=== PATIENT | female | born 1945 | race Caucasian/White ===

== ENCOUNTER → 2021-03-25 | Outpatient (CLI) | payer MEDICARE, BC ==
--- NOTE | 2021-03-25 14:11 | MM ---
Reason for exam: screening (asymptomatic). Last mammogram was performed 8 years and 10 months ago. History: Patient is postmenopausal, has history of endometrial cancer at age 60, and has history of ovarian cancer at age 60. Family history of breast cancer in paternal grandmother. Excisional biopsy of the right breast. Physical Findings: A clinical breast exam by your physician is recommended on an annual basis and results should be correlated with mammographic findings. MG 3D Screening Mammo W/Cad Bilateral CC and MLO view(s) were taken. Prior study comparison: May 15, 2012, bilateral digital screening mammo w/CAD. January 11, 2008, bilateral digital screening mammogram. The breast tissue is heterogeneously dense. This may lower the sensitivity of mammography. Finding #1: There is a 6 mm obscured oval mass in the upper outer quadrant of the right breast. Finding #2: There are typically benign round calcifications in both breasts. There is a chronic nodularity in the right breast. There is no discrete abnormality. ASSESSMENT: Benign, BI-RAD 2 RECOMMENDATION: Routine screening mammogram of both breasts in 1 year.
== END | disposition home or self-care (01) ==
LOC: RADMAMWWP 08:44
PROVIDERS: ATTEND Family Medicine
DX: Z12.31 Encounter for screening mammogram for malignant neoplasm of breast (principal)
CPT/HCPCS: 77063; 77067

== ENCOUNTER 2022-12-23 09:30 | Day surgery (SDC) | payer MEDICARE ==
--- NOTE | 2022-12-19 15:22 | P.HPIHPCON ---
History of Present Illness H&P Date: 12/19/22 Chief Complaint: Stress Urinary Incontinence Ms. Dorman is a 77 year old who presents for surgical management of stress urinary incontinence with TVT Midurethral Sling. The patient has had urinary incontinence without urgency for the past few years that has become inc reasingly worse. The leakage occurs withe bending, coughing, exercise, laughing, running, and sneezing. She describes leakage of moderate amount of urine. She has to use pads for protection and often has to change her clothes. She has leaks 5-6 times a week. She also has recurrent UTIs. Consent for Procedure: I have explained the operation/procedure to the patient, including the risks, benefits, side effects, alternative therapies (including not receiving the proposed treatment or service), the likelihood of the patient achieving his/her goals, and potential recuperation problems for the procedure/sedation/analgesia, as well as any blood products, if indicated. I also explained to the patient the risks, benefits and side effects of the alternatives, as well as the risks related to not receiving the proposed procedure, care, treatment, or services. Past Medical History Past Medical History: Cancer, Osteoarthritis (OA) Additional Past Medical History / Comment(s): SINUS PROBLEMS, OVARIAN/UTERINE CANCER 12 YEARS AGO HAD SX AND CHEMO, UTI,SHINGLES 10 YEARS AGO.STATED"HAS A SEWING NEEDLE LODGED IN HER LT KNEE" History of Any Multi-Drug Resistant Organisms: None Reported Past Surgical History: Appendectomy, Hysterectomy, Orthopedic Surgery Additional Past Surgical History / Comment(s): rectocele/CYSTOCELE, X2 LT KNEE ARTHROSCOPIES, RT BREAST FEW NODES REMOVED BUT WERE BENIGN. Past Anesthesia/Blood Transfusion Reactions: No Reported Reaction Past Psychological History: No Psychological Hx Reported Past Alcohol Use History: None Reported Past Drug Use History: None Reported - Past Family History Mother Additional Family Medical History / Comment(s): DIVERTICULITIS, HYSTERECTOMY Father Family Medical History: Cancer, Dementia, Prostate Disorder Medications and Allergies Home Medications Medication Instructions Recorded Confirmed Type Ascorbic Acid [Vitamin C] 500 mg PO DAILY@1200 03/26/15 07/01/15 History Multivit with Calcium,Iron,Min 1 tab PO DAILY 03/26/15 07/01/15 History [Women's Daily Multivitamin] Sulfamethox-Tmp 400-80Mg [Bactrim 1 tab PO Q12HR #6 tablet 07/02/15 Rx SS 400-80 mg] Allergies Allergy/AdvReac Type Severity Reaction Status Date / Time acetaminophen AdvReac severely Verified 07/01/15 14:54 affects liver function Surgical - Exam Focused physical exam is performed. External genitalia are normal in appearance for age. Very small grade 1 anterior and posterior prolapse. Postvoid residual is 0 cc. Cervix and uterus surgically absent. Assessment and Plan Assessment: 77 year old with stress urinary incontinence presents today for surgical management Plan: Risks, benefits, and alternatives to TVT Midurethral Sling and Cystoscopy discussed with the patient including risks including risk of infection, risk of bleeding, risk of damage to surrounding structures, uterine perforation, and risk of post-operative urinary retention or need for a temporary dunham catheter. All questions answered. The patient desires to proceed with surgery as scheduled. Time with Patient: Less than 30
[~2022-12-23 09:30] MED LIST: DEXAMETHASONE SOD PHOSPHATE 4 MG/ML 1 ML VIAL IV ONE; HYDROmorphone 0.5 MG/0.5 ML SYRINGE IVP PRN; LACTATED RINGERS 1,000 ML IV SCH; LIDOCAINE 1% (10MG/ML) FOR IV START INTRADERMA PRN; MIDAZOLAM 2 MG/2 ML VIAL IV PRN; ONDANSETRON 4 MG/2 ML VIAL IVP ONE; Pre Op ABX Message 1 EACH MISC MISCELLANE ONE
[2022-12-23] MEDS ORDERED: GLYCOPYRROLATE 0.2 MG/ML 2 ML VIAL ONE (10:44)
[2022-12-23] MEDS ORDERED: KETOROLAC 15 MG/ML 1 ML VIAL ONE (10:44)
[2022-12-23] MEDS ORDERED: PROPOFOL 10 MG/ML 20 ML VIAL IV ONE (10:44)
[2022-12-23] MEDS ORDERED: fentaNYL (PF) 50 MCG/ML 2 ML AMP ONE (10:44)
[2022-12-23] MEDS ORDERED: LIDOCAINE 1% INJ 10MG/ML (20 ML MDV) ONE (10:44)
[2022-12-23] MEDS ORDERED: MIDAZOLAM 2 MG/2 ML VIAL ONE (10:44)
[2022-12-23] MEDS ORDERED: ePHEDrine 50 MG/ML 1 ML VIAL ONE (10:44)
[2022-12-23] MEDS ORDERED: ESTRADIOL 0.1 MG/GM VAGINAL CREAM 42.5 GM TUBE VAGINAL ONE ×2 (11:09→11:36)
[2022-12-23] MEDS ORDERED: GENTAMICIN 80 MG/2 ML (MDV) VIAL IRRIGATION ONE (11:09)
[2022-12-23] MEDS ORDERED: VASOPRESSIN 20 UNIT/ML 1 ML VIAL IM ONE ×2 (11:10)
[2022-12-23 12:01] VITALS: TEMP 97.2
--- NOTE | 2022-12-23 12:11 | P.OP ---
Date of Procedure: 12/23/22 Preoperative Diagnosis: 1. Stress Urinary Incontinence Postoperative Diagnosis: Same Procedure(s) Performed: Transvaginal Tape Midurethral Sling and Cystoscopy Implants: [employer] Advantage Fit TVT Sling Anesthesia: ROSELYN Surgeon: Kristi Zamora Estimated Blood Loss (ml): 50 IV fluids (ml): 600 Urine output (ml): 200 Pathology: none sent Condition: stable Disposition: same day Indications for Procedure: Ms. Dorman is a 77 year old with stress urinary incontinence presents today for surgical management. Risks, benefits, and alternatives to TVT Midurethral Sling and Cystoscopy discussed with the patient including risks including risk of infection, risk of bleeding, risk of damage to surrounding structures, uterine perforation, and risk of post-operative urinary retention or need for a temporary dunham catheter. All questions answered. The patient desires to proceed with surgery as scheduled. Operative Findings: On cystocopy, no bladder wall trauma and no foreign bodies are seen. The sling moves freely behind the bladder wall when tensioned. Bilateral ureteral jets are effluxing normally. No urethra trauma noted while removing the cystoscope. Description of Procedure: The patient was taken to the operating room, where general anaesthesia was obtained. The patient was placed in the dorsal lithotomy position in [facility], prepped,and draped in normal sterile fashion. A Dunham catheter was placed into the bladder. Attention was then turned to the TVT part of the procedure. Two sites were marked on the anterior abdominal wall with a marking pen, one 1 fingerbreadth to the left and the other 1 fingerbreadth to the right of the midline, just above the pubic bone.Two sites were marked on the anterior abdominal wall with a marking pen, one 1 fingerbreadth to the left and the other 1 fingerbreadth to the right of the midline, just above the pubic bone. Attention was now turned to the vaginal field where a 18-Telugu Dunham catheter was already present, and the urine was drained. Retractors were used for visualization. The anterior vaginal wall over the location of the mid urethra was then injected with 1% lidocaine with epinephrine in the mid portion of the vagina and the lateral aspects heading to the inferior surface of the pubic bone bilaterally. Two Allis clamps were then placed approximately 2 cm apart with the mid portion of the Allis clamps corresponding to the mid portion of the urethra as determined by palpation of the Dunham within the patient's urethra. A scalpel was then used to incise between the 2 Allis clamps, and Metzenbaum scissors were used to dissect the vaginal mucosa off the urethra heading to the inferior surface of the pubic bone bilaterally. The [employer] Advantage Fit TVT trocar coupled to the plastic introducer sheath was now placed through the right sided anterior vaginal wall channel, and the trocar was rotated through the right retropubic space with careful attention being paid to stay beneath and behind the pubic bone as it rotated through the space up to the previously made yumi on the right anterior abdominal wall. The TVT trocar was uncoupled from the introducer sheath and the sheath was tagged and left in place. The TVT trocar was now placed into the second introducer sheath and positioned within the left anterior vaginal wall channel and rotated through the left retropubic space with careful attention being paid to stay beneath and behind the pubic bone as it rotated through this site up to the previously made yumi on the left anterior abdominal wall. 70-degree cystourethroscope was used to confirm that there was no trocar placement trauma to the bladder from either side, and no trauma to the urethra. Bilateral ureteral jets were visualized. Therefore, the bladder was drained, and the mesh was brought through the abdominal wall site. The mesh was brought to sit underneath of the urethra without any tensioning at all as determined by a hemostat used as a spacer between the urethra and the sling. The hemostat as a spacer was used to stabilize the position of the mesh as plastic sheaths were removed through the abdominal wall site. The skin wounds were closed with the use of skin glue after trimming the mesh. The vaginal wound was closed with a running stitch of 2-0 Vicryl. The vaginal is coated with vaginal estrace to aid in tissue healing. Hemostasis was noted to be excellent throughout, and final sponge, instrument, and needle count was noted to be correct. The patient was moved back to the preoperative holding area in stable condition having tolerated the procedure well.
[2022-12-23 12:39] VITALS: RESP 16
[2022-12-23 13:16] VITALS: BP 117/70; PULSE 73
== END 2022-12-23 15:01 | disposition home or self-care (01) ==
LOC: OR 09:30
PROVIDERS: ATTEND Obstetrics & Gynecology
DX: N39.3 Stress incontinence (female) (male) (principal); M19.90 Unspecified osteoarthritis, unspecified site; Z90.710 Acquired absence of both cervix and uterus; Z90.49 Acquired absence of other specified parts of digestive tract; Z88.2 Allergy status to sulfonamides; Z79.899 Other long term (current) drug therapy
CPT/HCPCS: 57288; C1771; J2250; J1100; J0690; J2405; J2001; J3010; J1580; J1885; J2704

== ENCOUNTER → 2024-07-15 | Outpatient (CLI) | payer MEDICARE ==
--- NOTE | 2024-07-15 10:46 | CT ---
EXAMINATION TYPE: CT abdomen pelvis wo con DATE OF EXAM: 07/15/2024 10:00 AM COMPARISON: None CLINICAL INDICATION: Female, 79 years old with history of R10.9 LEFT FLANK PAIN; left flank pain TECHNIQUE: CT of the abdomen and pelvis without contrast. Coronal and sagittal reconstructions perfor med. CT DLP: 422.2 mGycm, Automated exposure control for dose reduction was used. FINDINGS: LOWER CHEST: Heart borderline in size. Some strandy atelectasis of the lower lungs. ABDOMEN LIVER: Unremarkable GALLBLADDER AND BILE DUCTS: Unremarkable. PANCREAS: 2.5 cm nodular prominence of the pancreatic tail which may be normal tissue. Three-month fo llow-up CT to ensure stability. SPLEEN: Unremarkable. ADRENAL GLANDS: Unremarkable. KIDNEYS AND URETERS: Mild to moderate fullness of the left renal collecting system with a large 2.3 c m stone at the UPJ. 3 additional nonobstructive left renal stones are present extending into the suzette r calyces measuring 1.8 cm, 1.3 cm, and 7 mm. Lower pole left renal cyst measuring 2.6 cm. PELVIS BLADDER: No evidence for wall thickening or mass given limitations of exam. Pelvic floor relaxation. No abnormal fluid collection in the pelvis. REPRODUCTIVE: Uterus surgically absent. Ovaries either small or also surgically absent. Not well seen . ABDOMEN & PELVIS STOMACH AND BOWEL: Tiny hiatal hernia. No evidence of bowel obstruction. [id number] stool. Gene ralized colonic diverticulosis, more extensive within the sigmoid colon. PERITONEUM/RETROPERITONEUM: No evidence of pneumoperitoneum or free fluid. VASCULATURE: No evidence of aortic aneurysm. MUSCULOSKELETAL: Facet arthropathy lower lumbar spine. Mild degenerative change of the hips. LYMPH NODES: No gross evidence for lymphadenopathy. SOFT TISSUE/ABDOMINAL WALL: Unremarkable IMPRESSION: 1. Large 2.3 cm stone at the left UPJ causing [id number] hydronephrosis. 3 additional stones o n the left extending into the minor calyces measuring 1.8 cm, 1.3 cm, and 7 mm. 2. A 2.5 cm nodular prominence at the pancreatic tail may be normal tissue. Recommend 3 month follow- up CT to ensure a stable appearance and exclude the possibility of underlying mass. Correlate with CA 19-9 levels in the meanwhile. 3. Generalized colonic diverticulosis, extensive in the sigmoid colon. [facility], , 07/15/2024 10:44 AM
== END | disposition home or self-care (01) ==
LOC: RADCTMAIN 09:08
PROVIDERS: ATTEND Family Medicine
DX: N13.2 Hydronephrosis with renal and ureteral calculous obstruction (principal); K57.30 Diverticulosis of large intestine without perforation or abscess without bleeding
CPT/HCPCS: 74176

== ENCOUNTER → 2024-08-27 | Outpatient (CLI) | payer MEDICARE ==
[2024-08-27 15:14] LABS: BUN/Creat Ratio 25.62 Ratio (12.00-20.00); Blood Urea Nitrogen 20.5 mg/dL (9.0-27.0); Calcium 9.4 mg/dL (8.7-10.3); Carbon Dioxide 26.5 mmol/L (21.6-31.8); Chloride 105 mmol/L (96-109); Glucose 88 mg/dL (70-110); Potassium 4.8 mmol/L (3.5-5.5); Sodium 142 mmol/L (135-145)
[2024-08-27 15:17] LABS: Basophils # (A) 0.03 X 10*3/uL (0.00-0.10); Basophils % (A) 0.4 %; Eosinophils # (A) 0.06 X 10*3/uL (0.04-0.35); Eosinophils % (A) 0.9 %; HCT 45.8 % (37.2-46.3); HGB 14.2 g/dL (12.0-15.0); Lymphocytes # (A) 1.86 X 10*3/uL (0.90-5.00); Lymphocytes % (A) 27.2 %; MCV 90.2 FL (80.0-97.0); Monocytes # (A) 0.49 X 10*3/uL (0.20-1.00); Monocytes % (A) 7.2 %; NRBC Per 100 WBC 0 X 10*3/uL (0.00-0.01); Neutrophils # (A) 4.38 X 10*3/uL (1.80-7.70); Neutrophils % (A) 64.2 %; Platelet Count 218 X 10*3/uL (140-440); RBC 5.08 X 10*6/uL (4.10-5.20); RDW 13.6 % (11.5-14.5); WBC 6.83 X 10*3/uL (4.50-10.00)
== END | disposition home or self-care (01) ==
LOC: LABPAT 10:42
PROVIDERS: ATTEND Urology
DX: N20.0 Calculus of kidney (principal)
CPT/HCPCS: 80048; 85025

== ENCOUNTER 2024-09-04 07:47 | Day surgery (SDC) | payer MEDICARE ==
--- NOTE | 2024-09-03 18:58 | P.GSHP ---
History of Present Illness H&P Date: 09/03/24 79 yo female with a large collect ion of left renal stones that are causing pain and hydronephrosis. the largest of the stones is greater than 2 cm in the left renal pelvis She was referred to me for pecutaneous stone removal The risks and cimplications including failure to remove the stones, access the kidneys, infection, bleeding , pain injury to adjacent organs including the lung. She comes for a pcnl left. - Constitutional Constitutional: Denies chills, Denies fever - EENT Eyes: denies blurred vision, denies pain Ears, nose, mouth and throat: Denies headache, Denies sore throat - Cardiovascular Cardiovascular: Denies chest pain, Denies shortness of breath - Respiratory Respiratory: Denies cough, Denies 7 - Gastrointestinal Gastrointestinal: Denies abdominal pain, Denies diarrhea, Denies nausea, Denies vomiting - Genitourinary (Female) Genitourinary: Denies dysuria, Denies hematuria - Genitourinary (Male) Genitourinary: Denies dysuria, Denies hematuria - Musculoskeletal Musculoskeletal: Denies myalgias - Integumentary Integumentary: Denies pruritus, Denies rash - Neurological Neurological: Denies numbness, Denies weakness - Psychiatric Psychiatric: Denies anxiety, Denies depression - Endocrine Endocrine: Denies fatigue, Denies weight change Past Medical History Past Medical History: Cancer, Osteoarthritis (OA) Additional Past Medical History / Comment(s): SINUS PROBLEMS, OVARIAN/UTERINE CANCER 12 YEARS AGO HAD SX AND CHEMO, UTI,SHINGLES 10 YEARS AGO.STATED"HAS A SEWING NEEDLE LODGED IN HER LT KNEE", kidney stones History of Any Multi-Drug Resistant Organisms: None Reported Past Surgical History: Appendectomy, Hysterectomy, Orthopedic Surgery Additional Past Surgical History / Comment(s): rectocele/CYSTOCELE, X2 LT KNEE ARTHROSCOPIES, RT BREAST FEW NODES REMOVED BUT WERE BENIGN. Past Anesthesia/Blood Transfusion Reactions: No Reported Reaction Smoking Status: Never smoker - Past Family History Mother Additional Family Medical History / Comment(s): DIVERTICULITIS, HYSTERECTOMY Father Family Medical History: Cancer, Dementia, Prostate Disorder Medications and Allergies Home Medications Medication Instructions Recorded Confirmed Type Ascorbic Acid [Vitamin C] 500 mg PO DAILY@1200 03/26/15 08/30/24 History Multivit with Calcium,Iron,Min 1 tab PO DAILY 03/26/15 08/30/24 History [Women's Daily Multivitamin] Calcium Carbonate [Calcium] 600 mg PO DAILY 12/21/22 08/30/24 History Cholecalciferol [Vitamin D3 (25 25 mcg PO DAILY 12/21/22 08/30/24 History Mcg = 1000 Iu)] Cranberry Fruit Extract [Cranberry] 500 mg PO DAILY 12/21/22 08/30/24 History Escitalopram [Lexapro] 10 mg PO DAILY 12/21/22 08/30/24 History Zinc Gluconate [Zinc] 50 mg PO DAILY 12/21/22 08/30/24 History Ibuprofen [Motrin] 600 mg PO Q6HR PRN #30 tab 12/23/22 08/30/24 Rx Allergies Allergy/AdvReac Type Severity Reaction Status Date / Time acetaminophen AdvReac severely Verified 08/30/24 14:00 affects liver function Results - Imaging CT scan - abdomen: report reviewed, image reviewed CT scan - pelvis: report reviewed, image reviewed Assessment and Plan Assessment: Impression: left renal stones, large Plan: cysto, ureteral cath placement, pcnl left
--- NOTE | 2024-09-04 08:19 | XR ---
EXAMINATION TYPE: XR KUB DATE OF EXAM: 09/04/2024 8:05 AM COMPARISON: None. CLINICAL INDICATION: Female, 79 years old with history of Left Renal Stone N20.0, TECHNIQUE: XR KUB view(s) obtained. FINDINGS: Nonspecific bowel gas is present. Air is within the colon. Psoas margins are normal. No organomegaly is present. There is a couple large calcifications in the left midabdomen. Large renal stones could be considered IMPRESSION: 1. Large calcifications measuring 2.7 and 1.9 cm may be large left renal stones. [facility], , 09/04/2024 8:16 AM
[2024-09-04] MEDS: LACTATED RINGERS 1,000 ML IV SCH (08:40)
[2024-09-04] MEDS: IV FLUID CONTINUATION 1,000 ML IV ONE (08:40)
[2024-09-04] MEDS: ONDANSETRON 4 MG/2 ML VIAL IVP ONE (08:44)
[2024-09-04] MEDS: DEXAMETHASONE SOD PHOSPHATE 4 MG/ML 1 ML VIAL IV ONE (08:44)
[2024-09-04] MEDS ORDERED: fentaNYL (PF) 50 MCG/ML 2 ML AMP ONE (09:41)
[2024-09-04] MEDS ORDERED: PHENYLEPHRINE-0.9% NACL SYG 1,000 MCG/10 ML SYRINGE ONE (09:41)
[2024-09-04] MEDS ORDERED: SUCCINYLCHOLINE CHLORIDE 200 MG/10 ML VIAL IV ONE (09:41)
[2024-09-04] MEDS ORDERED: GLYCOPYRROLATE 0.2 MG/ML 2 ML VIAL ONE (09:41)
[2024-09-04] MEDS ORDERED: PROPOFOL 10 MG/ML 20 ML VIAL IV ONE (09:41)
[2024-09-04] MEDS ORDERED: ROCURONIUM 10 MG/ML (5 ML VIAL) IV ONE (09:41)
[2024-09-04] MEDS ORDERED: LIDOCAINE 1% INJ 10MG/ML (20 ML MDV) ONE (09:41)
[2024-09-04] MEDS ORDERED: NEOSTIGMINE 1 MG/ML 10 ML VIAL ONE (09:41)
[2024-09-04] MEDS: ceFAZolin 2 GM in DEXTROSE 5% IN WATER 50 ML IVPB PRN (09:46)
[2024-09-04] MEDS: IOPAMIDOL-300 100ML BTL MISCELLANE ONE (10:16)
--- NOTE | 2024-09-04 12:02 | FL ---
EXAMINATION TYPE: FL Perc Nephrostomy New Access DATE OF EXAM: 09/04/2024 11:57 AM COMPARISON: Pre Operative Images if available both CT/MRI or plain film CLINICAL INDICATION: Female, 79 years old with history of LEFT SIDE RENAL STONE; TECHNIQUE: FL Perc Nephrostomy New Access, multiple fluoroscopic images provided for procedure. DAP: 42.380 mGym2 Gycm2 uGym2 cGycm2 or equivalent. FINDINGS: IMPRESSION: 1. Report was generated for administrative purposes only. 2. Please see the operative/procedural note for further details. [facility], , 09/04/2024 11:59 AM
[2024-09-04] MEDS: HYDROmorphone 0.5 MG/0.5 ML SYRINGE IVP PRN (12:42)
[2024-09-04] MEDS ORDERED: ACETAMINOPHEN TAB 325 MG TAB PO PRN (12:59)
[2024-09-04] MEDS ORDERED: MAG HYDROX/AL HYDROX/SIMETH 30 ML CUP PO PRN (12:59)
[2024-09-04] MEDS ORDERED: ONDANSETRON 4 MG/2 ML VIAL IVP PRN ×2 (12:59→13:10)
[2024-09-04] MEDS ORDERED: NALOXONE 0.4 MG/ML 1 ML VIAL IV PRN ×2 (13:01→15:07)
--- NOTE | 2024-09-04 13:05 | P.OP ---
Date of Procedure: 09/04/24 Preoperative Diagnosis: Left renal stones, large Postoperative Diagnosis: Same Procedure(s) Performed: Cystoscopy, placement of left ureteral catheter, percutaneous nephrostomy () percutaneous nephrostolithotomy with ultrasound, placement of 10J ne phrostomy Anesthesia: ROSELYN Surgeon: Tyrone Mack Estimated Blood Loss (ml): 100 Pathology: other (Stone) Condition: stable Disposition: PACU Indications for Procedure: The patient is 79. She has a large volume of left kidney stones greater than 3 cm she comes for percutaneous nephrostolithotomy. Description of Procedure: Patient brought to the operating suite. Given a general anesthetic on the transport gurney. She is placed in a frog position. Cystoscopy Foroblique lens identifies a left ureteral orifice which was intubated with a 5 Nigerien occluding balloon catheter the ureteropelvic junction. She is placed in a prone position with care airway and extremities. I performed percutaneous access and will dictate this separately. After the tract was dilated to 30 Nigerien and a 30 Nigerien sheath is placed into the kidney I introduced the rigid scope into the kidney. The larger stone was identified and broken down into tiny pieces with ultrasound the largest of which are removed with a grasping forceps. I then identified the smaller stone and also break it with ultrasound and remove the large fragments. At the end of the procedure there are no remaining stones. This was confirmed fluoroscopically. A 10J nephrostomy tubes placed. The patient was awakened and returned to recovery room in good condition. Blood loss was 100 mL.
[2024-09-04] MEDS ORDERED: MORPHINE SULFATE 2 MG/ML SYRINGE IV PRN (13:08)
[2024-09-04] MEDS ORDERED: HYDROcodone/APAP 5-325MG 1 EACH TAB PO PRN (13:09)
--- NOTE | 2024-09-04 13:21 | P.PCN ---
Date of Procedure: 09/04/24 Preoperative Diagnosis: Left renal stones, large Postoperative Diagnosis: Same Procedure(s) Performed: Left percutaneous nephrostomy tube access Anesthesia: LUNAA Surgeon: Tyrone Mack Indications for Procedure: The patient has large volume of kidney stones greater than 3 cm. SHe comes for percutaneous nephrostolithotomy Description of Procedure: The patient is on the operating table with a previously placed ureteral catheter at the UPJ. Air is injected through the catheter into the collecting system to outline the collecting system. I elected to perform access to the left lower pole where a stone resides. I used a Chiba needle and advanced the needle into the left the lower pole calyx. I then passed a [place] mandrel wire through the Chiba needle into the renal pelvis. Over the [place] wire I then advanced a 6 Kenyan dilating catheter. Through the dilating catheter I advanced an 035 wire down the left ureter. Over the 035 wire then and passed an 8 and 10 dilating/exchange catheter. A second safety wire was passed on the ureter. Over the working wire I then dilate the nephrostomy tract to 30 Kenyan with the nephrostomy tract dilating balloon. A 30 Kenyan sheath is then placed over the balloon into the collecting system.
[2024-09-04] MEDS: DEXTROSE 5%-0.45% NACL 1,000 ML IV SCH (14:42)
[2024-09-04] MEDS ORDERED: HYDROmorphone PCA 10 MG/50 ML BAG IV PRN (15:07)
[2024-09-04] MEDS: HYDROmorphone PCA 10 MG/50 ML BAG IV PRN (15:48)
[2024-09-04] MEDS: SULFAMETHOX-TMP 800-160MG 1 EACH TAB PO SCH (22:34)
[2024-09-05 07:57] VITALS: BP 117/65; PULSE 64; RESP 18; TEMP 97.6
[2024-09-05] MEDS: ESCITALOPRAM 10 MG TAB PO SCH (08:16)
--- NOTE | 2024-09-05 11:51 | P.DS ---
Providers Expected date of discharge: 09/05/24 Attending physician: Tyrone Mack Primary care physician: Steven Rose MD Hospital Course: On the day of admission, the patient underwent an uncomplicated left PCNL. The perioperative course was unremarkable. Patient remained afebrile with stable vital signs. On the first postoperative day, she was comfortable and had taken minimal analgesics. Both the nephrostomy tube and Arshad catheter were draining clear urine. Procedures: Left percutaneous nephrolithotomy (PCNL) on September 04, 2024. Patient Condition at Discharge: Good Plan - Discharge Summary Discharge Rx Participant: No New Discharge Prescriptions: New Ketorolac [Toradol] 10 mg PO Q6HR PRN #10 tab PRN Reason: Pain No Action Ascorbic Acid [Vitamin C] 500 mg PO DAILY@1200 Multivit with Calcium,Iron,Min [Women's Daily Multivitamin] 1 tab PO DAILY Cholecalciferol [Vitamin D3 (25 Mcg = 1000 Iu)] 25 mcg PO DAILY Cranberry Fruit Extract [Cranberry] 500 mg PO DAILY Sulfamethox-Tmp 800-160Mg [Bactrim DS 800-160 mg] 800 mg PO BID Escitalopram [Lexapro] 10 mg PO DAILY Zinc Gluconate [Zinc] 50 mg PO DAILY Calcium Carbonate [Calcium] 600 mg PO DAILY Ibuprofen [Motrin] 600 mg PO Q6HR PRN #30 tab PRN Reason: Mild Pain (Scale 1 To 3) Discharge Medication List Ascorbic Acid [Vitamin C] 500 mg PO DAILY@1200 03/26/15 [History] Multivit with Calcium,Iron,Min [Women's Daily Multivitamin] 1 tab PO DAILY 03/26/15 [History] Calcium Carbonate [Calcium] 600 mg PO DAILY 12/21/22 [History] Cholecalciferol [Vitamin D3 (25 Mcg = 1000 Iu)] 25 mcg PO DAILY 12/21/22 [History] Cranberry Fruit Extract [Cranberry] 500 mg PO DAILY 12/21/22 [History] Escitalopram [Lexapro] 10 mg PO DAILY 12/21/22 [History] Zinc Gluconate [Zinc] 50 mg PO DAILY 12/21/22 [History] Ibuprofen [Motrin] 600 mg PO Q6HR PRN #30 tab 12/23/22 [Rx] Sulfamethox-Tmp 800-160Mg [Bactrim DS 800-160 mg] 800 mg PO BID 09/04/24 [History] Ketorolac [Toradol] 10 mg PO Q6HR PRN #10 tab 09/05/24 [Rx] Follow up Appointment(s)/Referral(s): Tyrone Mack MD [STAFF PHYSICIAN] - 09/09/24 Activity/Diet/Wound Care/Special Instructions: Discharge home with left nephrostomy tube. Instruct patient how to manage nephrostomy tube. Resume home medications. Patient may take Motrin or Toradol, but should not take both together. Drink plenty of fluids. Diet as tolerated. Discharge Disposition: HOME SELF-CARE
== END 2024-09-05 14:01 | disposition home or self-care (01) ==
LOC: OR 07:47 → 4SSUR 11:44 → OR 09-05 14:01
PROVIDERS: ATTEND Urology
DX: N13.2 Hydronephrosis with renal and ureteral calculous obstruction (principal); M19.90 Unspecified osteoarthritis, unspecified site; Z85.42 Personal history of malignant neoplasm of other parts of uterus; Z87.440 Personal history of urinary (tract) infections; Z90.49 Acquired absence of other specified parts of digestive tract; Z90.710 Acquired absence of both cervix and uterus; Z83.79 Family history of other diseases of the digestive system; Z79.1 Long term (current) use of non-steroidal anti-inflammatories (NSAID); Z79.899 Other long term (current) drug therapy
CPT/HCPCS: 82365; 50432; 74018; 50080; C1769 ×3; C2628; C1894; C1729; J1100; J0690; J2405; J1171 ×2; Q9967

== ENCOUNTER 2024-09-07 06:34 | Emergency (ER) | payer MEDICARE ==
[2024-09-07 06:43] VITALS: RESP 18
--- NOTE | 2024-09-07 08:16 | ED ---
General Adult HPI - General Chief complaint: Urogenital Stated complaint: post op complications Time Seen by Provider: 09/07/24 07:00 Source: patient, RN notes reviewed Mode of arrival: ambulatory Limitations: no limitations - History of Present Illness Initial comments: 79-year-old female presents emergency department complaint of nephrostomy tube complications. Patient states that she had procedure by Dr. Omer 3 days ago for large multiple stones she had a nephrostomy tube placed in the left kidney. She states she was having good output up until last night she morning with saturation of her bed she states that she has minimal output and states that she noted she had hematuria when she urinated this morning. She states this was not present prior. Denies appears chilled. Patient offers no other complaints. - Related Data Home Medications Medication Instructions Recorded Confirmed Ascorbic Acid [Vitamin C] 500 mg PO DAILY@1200 03/26/15 09/04/24 Multivit with Calcium,Iron,Min 1 tab PO DAILY 03/26/15 09/04/24 [Women's Daily Multivitamin] Calcium Carbonate [Calcium] 600 mg PO DAILY 12/21/22 09/04/24 Cholecalciferol [Vitamin D3 (25 25 mcg PO DAILY 12/21/22 09/04/24 Mcg = 1000 Iu)] Cranberry Fruit Extract [Cranberry] 500 mg PO DAILY 12/21/22 09/04/24 Escitalopram [Lexapro] 10 mg PO DAILY 12/21/22 09/04/24 Zinc Gluconate [Zinc] 50 mg PO DAILY 12/21/22 09/04/24 Sulfamethox-Tmp 800-160Mg [Bactrim 800 mg PO BID 09/04/24 09/04/24 DS 800-160 mg] Previous Rx's Medication Instructions Recorded Ibuprofen [Motrin] 600 mg PO Q6HR PRN #30 tab 12/23/22 Ketorolac [Toradol] 10 mg PO Q6HR PRN #10 tab 09/05/24 Allergies Allergy/AdvReac Type Severity Reaction Status Date / Time acetaminophen AdvReac severely Verified 09/07/24 06:36 affects liver function Review of Systems ROS Statement: Those systems with pertinent positive or pertinent negative responses have been documented in the HPI. ROS Other: All systems not noted in ROS Statement are negative. Past Medical History Past Medical History: Cancer, Osteoarthritis (OA) Additional Past Medical History / Comment(s): SINUS PROBLEMS, OVARIAN/UTERINE CANCER 12 YEARS AGO HAD SX AND CHEMO, UTI,SHINGLES 10 YEARS AGO.STATED"HAS A SEWING NEEDLE LODGED IN HER LT KNEE", kidney stones History of Any Multi-Drug Resistant Organisms: None Reported Past Surgical History: Appendectomy, Hysterectomy, Orthopedic Surgery Additional Past Surgical History / Comment(s): rectocele/CYSTOCELE, X3 LT KNEE ARTHROSCOPIES, RT BREAST FEW NODES REMOVED BUT WERE BENIGN, L kidney stent Past Anesthesia/Blood Transfusion Reactions: No Reported Reaction Past Psychological History: No Psychological Hx Reported Smoking Status: Never smoker Past Alcohol Use History: None Reported Past Drug Use History: None Reported - Past Family History Mother Additional Family Medical History / Comment(s): DIVERTICULITIS, HYSTERECTOMY Father Family Medical History: Cancer, Dementia, Prostate Disorder General Exam Limitations: no limitations General appearance: alert, in no apparent distress Head exam: Present: atraumatic, normocephalic, normal inspection Eye exam: Present: normal appearance, PERRL, EOMI. Absent: scleral icterus, conjunctival injection, periorbital swelling Respiratory exam: Present: normal lung sounds bilaterally. Absent: respiratory distress, wheezes, rales, rhonchi, stridor Cardiovascular Exam: Present: regular rate, normal rhythm, normal heart sounds. Absent: systolic murmur, diastolic murmur, rubs, gallop, clicks GI/Abdominal exam: Present: soft, normal bowel sounds. Absent: distended, tenderness, guarding, rebound, rigid Course Vital Signs 09/07/24 06:36 Temperature 97.9 F Pulse Rate 77 Respiratory 18 Rate Blood Pressure 115/73 O2 Sat by Pulse 97 Oximetry Medical Decision Making - Medical Decision Making Was pt. sent in by a medical professional or institution (, PA, REEFER ENGINEER, urgent care, hospital, or fci...) When possible be specific @ -No Did you speak to anyone other than the patient for history (EMS, parent, family, police, friend...)? What history was obtained from this source @ -No Did you review nursing and triage notes (agree or disagree)? Why? @ -I reviewed and agree with nursing and triage notes Were old charts reviewed (outside hosp., previous admission, EMS record, old EKG, old radiological studies, urgent care reports/EKG's, fci records)? Report findings @ -Reviewed operative notes by Dr. mcleod for nephrostomy tube Differential Diagnosis (chest pain, altered mental status, abdominal pain women, abdominal pain men, vaginal bleeding, weakness, fever, dyspnea, syncope, headache, dizziness, GI bleed, back pain, seizure, CVA, palpatations, mental health, musculoskeletal)? @ -Differential Abdominal Pain Women: Appendicitis, Cholecystitis, diverticulosis, ischemic bowel, pancreatitis, hepatitis, UTI, gastroenteritis, AAA, incarcerated hernia, bowel obstruction, constipation, inflammatory bowel, hepatitis, peptic ulcer disease, splenic infarction, perforated viscus, vulvitis, ovarian torsion, PID, kidney stone, placenta abruption, this is not meant to be an all-inclusive list EKG interpreted by me (3pts min.). @ -None X-rays interpreted by me (1pt min.). @ -None done CT interpreted by me (1pt min.). @ -None done U/S interpreted by me (1pt. min.). @ -None done What testing was considered but not performed or refused? (CT, X-rays, U/S, labs)? Why? @ -None What meds were considered but not given or refused? Why? @ -None Did you discuss the management of the patient with other professionals (professionals i.e. , PA, REEFER ENGINEER, lab, RT, psych nurse, social security benefits interviewer, set o type operator, teacher, consular officer, counter caser)? Give summary @ -Discussed case with Dr. Mattson who recommended flushing nephrostomy tube with 10 cc of normal saline Was smoking cessation discussed for >3mins.? @ -No Was critical care preformed (if so, how long)? @ -No Were there social determinants of health that impacted care today? How? (Homelessness, low income, unemployed, alcoholism, drug addiction, transportation, low edu. Level, literacy, decrease access to med. care, nursing home, rehab)? @ -No Was there de-escalation of care discussed even if they declined (Discuss DNR or withdrawal of care, Hospice)? DNR status @ -No What co-morbidities impacted this encounter? (DM, HTN, Smoking, COPD, CAD, Cancer, CVA, ARF, Chemo, Hep., AIDS, mental health diagnosis, sleep apnea, mor bid obesity)? @ -None Was patient admitted / discharged? Hospital course, mention meds given and rou te, prescriptions, significant lab abnormalities, going to OR and other pertinent info. @Discharge patient had nephrostomy tube flushed without complications urine is flowing patient has no sign stress no pain currently. Undiagnosed new problem with uncertain prognosis? @ -No Drug Therapy requiring intensive monitoring for toxicity (Heparin, Nitro, Insulin, Cardizem)? @ -No Were any procedures done? @ -No Diagnosis/symptom? @ -Nephrostomy tube complication Acute, or Chronic, or Acute on Chronic? @ -Acute Uncomplicated (without systemic symptoms) or Complicated (systemic symptoms)? @ -Uncomplicated Side effects of treatment? @ -No Exacerbation, Progression, or Severe Exacerbation? @ -No Poses a threat to life or bodily function? How? (Chest pain, [place], [place], pneumonia, PE, COPD, DKA, ARF, appy, cholecystitis, CVA, Diverticulitis, Homicidal, Suicidal, threat to staff... and all critical care pts) @ -No - Lab Data Result diagrams: 09/07/24 08:08 09/07/24 08:08 Lab Results 09/07/24 09/07/24 Range/Units 08:08 08:08 WBC 7.68 (4.50-10.00) 10*3/uL RBC 4.32 (4.10-5.20) 10*6/uL Hgb 12.5 (12.0-15.0) g/dL Hct 37.9 (37.2-46.3) % MCV 87.7 (80.0-97.0) fL MCH 28.9 (27.0-32.0) pg MCHC 33.0 (32.0-37.0) g/dL Plt Count 242 (140-440) 10*3/uL MPV 10.7 (9.5-12.2) fL Immature Gran % (Auto) 0.4 % Neutrophils % 67.9 % Lymphocytes % 21.9 % Monocytes % 7.8 % Eosinophils % 1.7 % Basophils % 0.3 % Immature Gran # 0.03 (0.00-0.04) 10*3/uL Neutrophils # 5.22 (1.80-7.70) 10*3/uL Lymphocytes # 1.68 (0.90-5.00) 10*3/uL Monocytes # 0.60 (0.20-1.00) 10*3/uL Eosinophils # 0.13 (0.04-0.35) 10*3/uL Basophils # 0.02 (0.00-0.10) 10*3/uL Sodium 139 (137-145) mmol/L Potassium 4.5 (3.5-5.1) mmol/L Chloride 107 (98-107) mmol/L Carbon Dioxide 25 (22-30) mmol/L Anion Gap 7 mmol/L BUN 28 H (7-17) mg/dL Creatinine 1.37 H (0.52-1.04) mg/dL Est GFR (CKD-EPI)AfAm 43 (>60 ml/min/1.73 sqM) Est GFR (CKD-EPI)NonAf 37 (>60 ml/min/1.73 sqM) Glucose 99 (74-99) mg/dL Calcium 9.2 (8.4-10.2) mg/dL Total Bilirubin 0.5 (0.2-1.3) mg/dL AST 26 (14-36) U/L ALT 13 (4-34) U/L Alkaline Phosphatase 103 (38-126) U/L Total Protein 6.5 (6.3-8.2) g/dL Albumin 3.6 (3.5-5.0) g/dL Disposition Clinical Impression: Nephrostomy complication Disposition: HOME SELF-CARE Condition: Stable Additional Instructions: Please return to the Emergency Department if symptoms worsen or any other concerns. Is patient prescribed a controlled substance at d/c from ED?: No Referrals: Steven Rose MD [Primary Care Provider] - 1-2 days Time of Disposition: 09:18
[2024-09-07 08:18] LABS: Basophils # (A) 0.02 10*3/uL (0.00-0.10); Basophils % (A) 0.3 %; Eosinophils # (A) 0.13 10*3/uL (0.04-0.35); Eosinophils % (A) 1.7 %; HCT 37.9 % (37.2-46.3); HGB 12.5 g/dL (12.0-15.0); Lymphocytes # (A) 1.68 10*3/uL (0.90-5.00); Lymphocytes % (A) 21.9 %; MCH 28.9 pg (27.0-32.0); MCV 87.7 fL (80.0-97.0); Mean Platelet Volume 10.7 fL (9.5-12.2); Monocytes % (A) 7.8 %; Neutrophils # (A) 5.22 10*3/uL (1.80-7.70); Neutrophils % (A) 67.9 %; Platelet Count 242 10*3/uL (140-440); RBC 4.32 10*6/uL (4.10-5.20); RDW 13.2 % (11.5-14.5); WBC 7.68 10*3/uL (4.50-10.00)
[2024-09-07 08:47] LABS: ALT 13 U/L (4-34); AST 26 U/L (14-36); African American GFR (CKD) 43 (>60 ml/min/1.73 sqM); Albumin 3.6 g/dL (3.5-5.0); Alkaline Phosphatase 103 U/L (38-126); Anion Gap 7 mmol/L; Blood Urea Nitrogen 28 mg/dL (7-17); Calcium 9.2 mg/dL (8.4-10.2); Carbon Dioxide 25 mmol/L (22-30); Chloride 107 mmol/L (98-107); Glucose 99 mg/dL (74-99); Non-African American GFR(CKD) 37 (>60 ml/min/1.73 sqM); Potassium 4.5 mmol/L (3.5-5.1); Sodium 139 mmol/L (137-145); Total Bilirubin 0.5 mg/dL (0.2-1.3); Total Protein 6.5 g/dL (6.3-8.2)
[2024-09-07 10:51] VITALS: BP 154/67; PULSE 65; TEMP 98.4
== END 2024-09-07 10:40 | disposition home or self-care (01) ==
LOC: EC 06:34
DX: N99.528 Other complication of incontinent external stoma of urinary tract (principal); Z88.8 Allergy status to other drugs, medicaments and biological substances
CPT/HCPCS: 36415; 80053; 85025; 99283